=== PATIENT | female | born 1990 | race Caucasian/White ===

== ENCOUNTER 2016-10-29 12:09 | Emergency (ER) | payer OTHER ==
--- NOTE | 2016-10-29 15:45 | DIAGNOSTIC IMAGING REPORT ---
PROCEDURE: US ABDOMEN ULTRASOUND-LIMITED INDICATION: PAIN TECHNIQUE: Loaiza scale and color Doppler sonographic images of the abdomen were obtained without comparison. COMPARISON: None. FINDINGS: Limited study due to bowel gas and . The appendix was not visualized due to body habitus and . In the right lower quadrant the ovary avascular area were noted. The right kidney demonstrates minimal hydronephrosis. No stones are seen in the gallbladder. IMPRESSION: 1. Limited study. The appendix not visualized. No stones in the gallbladder.
--- NOTE | 2016-10-29 20:52 | ED CLINICAL REPORT ---
Clinical Report - Physicians/Mid Levels [facility] [address] [place] [address] 10/29/2016 12:11 Patient: AJ MACDONALD Time Seen: 13:11 Oct 29 2016. Arrived- By private vehicle. Historian- patient. HISTORY OF PRESENT ILLNESS Chief Complaint: ABDOMINAL PAIN. It is described as located in the right lower quadrant. This started just prior to arrival 9 AM and is still present. No nausea or loss of appetite. ( 19-week-old female, who recently fell 2 days previously at her back, was seen by her OB yesterday, developed abdominal pain this morning. She is currently being treated for vaginosis, as well as positive recent urinalysis, and is awaiting a complete closure, to start antibiotics. No vag bleeding. abd pain on right side, worse with movement, constant pain, no meds prior to arrival, not relieved with anything, improves in position.). REVIEW OF SYSTEMS No constipation, difficulty with urination, pain with urination, urinary frequency or headache. No sore throat, difficulty breathing or cough. All systems otherwise negative, except as recorded above. PAST HISTORY OB Gran. SOCIAL HISTORY Never smoker. No alcohol use. ADDITIONAL NOTES The nursing notes have been reviewed. PHYSICAL EXAM Vital Signs: 10/29/2016 12:55 BP: 118/74. HR: 78. RR: 18. O2 saturation: 100%. Temp: 98.4 F. Pain level now: 7/10. Appearance: Alert. No acute distress. Eyes: Eyes normal inspection. ENT: Ears normal. Nose normal. Neck: Normal inspection. Thyromegaly. Neck supple. CVS: Normal heart rate and rhythm. Heart sounds normal. Respiratory: No respiratory distress. Breath sounds normal. Chest nontender. No accessory muscle use or decreased air movement. Abdomen: Soft and nontender. Tenderness. Guarding present. Rebound tenderness. Gravid uterus palpable to midpoint between pubic symphysis and umbilicus. Back: Normal inspection. Skin: Skin warm. Normal skin color. LABS, X-RAYS, AND EKG Abdominal Sonogram: (IMPRESSION: 1. Limited study. The appendix not visualized. No stones in the gallbladder. Electronically Final signed by:Bennett Palumbo MD 10/29/2016 3:49:13 PM). Laboratory Tests: UA-Culture if indicated: (WILMER: 10/29/2016 13:10) ( MsgRcvd 10/29/2016 14:07) Final results Test Result Flag Units (Reference) URINE COLOR YELLOW URINE APPEARANCE CLEAR URINE GLUCOSE NEGATIVE (NEGATIVE) URINE BILIRUBIN NEGATIVE (NEGATIVE) URINE KETONE NEGATIVE (NEGATIVE) URINE SPECIFIC GRAVITY 1.015 (1.010-1.030) URINE PH 7.5 (5.0-8.0) URINE PROTEIN NEGATIVE (NEGATIVE) URINE UROBILINOGEN 0.2 EU/dL (0.2-1.0) URINE NITRITE NEGATIVE (NEGATIVE) URINE BLOOD NEGATIVE (NEGATIVE) URINE LEUK ESTERASE NEGATIVE (NEGATIVE) URINE RBC NONE SEEN rbc/hpf (0-1) URINE WBC RARE wbc/hpf (0-1) URINE EPITHELIAL CELLS 0-1 EPI/hpf (0-5) URINE BACTERIA NONE SEEN (NONE SEEN) URINE COMMENT CULT NOT INDICATED URINE CULTURES ARE SET-UP BASED ON THE FOLLOWING CRITERIA:POSITIVE NITRITEPOSITIVE LEUKOCYTE ESTERASEGREATER THAN 10 WHITE BLOOD CELLSMODERATE (2+) OR GREATER BACTERIA CBC w Diff: (WILMER: 10/29/2016 13:49) ( MsgRcvd 10/29/2016 14:14) Final results Test Result Flag Units (Reference) WHITE BLOOD COUNT 11.9 H K/uL (4.5-11.5) RED BLOOD COUNT 4.52 M/uL (4.00-5.20) HEMOGLOBIN 13.1 gm/dL (12.0-16.0) HEMATOCRIT 40.6 % (36.0-46.0) MEAN CELL VOLUME 90 fL (80-100) MEAN CORPUSCULAR HGB 29 pg (26-34) MEAN CORPUSCULAR HGB CONC 32 g/dL (31-37) RED CELL DISTRIBUTION WIDTH 12.6 % (11.6-14.8) PLATELET COUNT 301 K/uL (150-400) LYMPH % 21.8 L % (25-40) MONO % 1.5 L % (3-14) GRANULOCYTE % 76.7 (53-90) CMP: (WILMER: 10/29/2016 13:49) ( MsgRcvd 10/29/2016 14:30) Final results Test Result Flag Units (Reference) GLUCOSE 73 mg/dL (70-110) BUN 6 L mg/dL (7-18) CREATININE 0.4 L mg/dL (0.6-1.3) Estimated GFR >60 mL/min Estimated GFR- >60 mL/min Note: Persistent reduction over 3 months in eGFR<60 mL/min/1.73 m2 defines CKD. Patients with eGFR values>=60 mL/min/1.73 m2 may also have CKD if evidence ofpersistent proteinuria. Additional information may be foundat www.kidney.org. SODIUM 138 mmol/L (136-145) POTASSIUM 3.8 mmol/L (3.5-5.1) CHLORIDE 103 mmol/L (98-107) CARBON DIOXIDE 24 mmol/L (21-32) CALCIUM 8.5 mg/dL (8.5-10.1) TOTAL PROTEIN 6.6 g/dL (6.4-8.2) ALBUMIN 3.0 L g/dL (3.3-5.0) BILIRUBIN, TOTAL 0.3 mg/dL (0.0-1.0) ALKALINE PHOSPHATASE 67 U/L (46-116) AST (SGOT) 46 H U/L (15-37) ALT (SGPT) 62 U/L (12-78) . Note - Tests: (MRI abd: IMPRESSION: 1. Appendix not visualized but no definite evidence of a right lower quadrant inflammatory mass 2. Small amount of free fluid in the right lower quadrant and pelvis, etiology uncertain 3. Intrauterine 4. Results discussed with Jayden Barcenas Electronically Final signed by:Thomas Mejia MD 10/29/2016 9:00:30 PM). PROGRESS AND PROCEDURES Course of Care: FHT 157 [address] Collado, and he examined patient, concern for appendicitis. [address] Elizondo, who would like an MRI 1550 Discussed approval per radiology, per MRI, for the MRI with DR. Balderas 1600 Consent form signed by patient, and MRI has been ordered Pt with iv in right ac, family at bedside. MRI completed, no obvious signs of appendicitis, patient warranted in regard to new symptoms, need for follow-up. Understands plan. Stable. Patient can be discharged. 10/29/2016 20:50 BP: 110/60. HR: 68. RR: 18. O2 saturation: 100%. Pain level now: 0/10. 10/29/2016 15:36 BP: 103/67. HR: 68. RR: 16. O2 saturation: 99%. Pain level now: 4/10. Patient is stable. Physical exam findings are improved. Symptoms better. Patient/family counseled. Disposition: Discharged. CLINICAL IMPRESSION Acute abdominal pain. Second trimester ; positive test in emergency department. INSTRUCTIONS No strenuous activity. Rest. Drink plenty of fluids. No sexual contact. (pelvic rest drink plenty of fluid see DR. Menchaca on Wednesday). (Electronically signed by Grace Barcenas P.A.-C 10/29/2016 21:17)
--- NOTE | 2016-10-29 20:52 | ED ORDER SUMMARY ---
..... Patient: AJ MACDONALD OrderSheet [facility] VisitID: [id number] [place] [address] 26y, F Registration Date/Time: 10/29/2016 ORDER SHEET Weight: 77.1 kg (stated) Allergies: No Known Drug Allergy GENERAL ORDERS: CBC w Diff Urgent (13:10 10/29/2016 EKoroleva P.A.-C) (Ack 13:12 TBergley) (13:50 DDean R.N.) (13:50 TBergley) CMP Urgent (13:10 10/29/2016 EKoroleva P.A.-C) (Ack 13:12 TBergley) (13:50 DDean R.N.) (13:50 TBergley) UA-Culture if indicated Urgent (13:10 10/29/2016 EKoroleva P.A.-C) (Ack 13:12 TBergley) (13:50 DDean R.N.) US Abdomen Limited (No) (rlq) Urgent (14:19 10/29/2016 EKoroleva P.A.-C) (Ack 14:25 TBergley) (15:38 DDean R.N.) MRI Pelvis wo Cont (Not Applicable) Urgent (15:47 10/29/2016 EKoroleva P.A.-C) (Ack 15:57 TBergley) (20:19 TBergley) MEDICATION ORDERS: IV FLUIDS: IV NS : initial bolus 1000 mL (1000 mL/hr), then 10 mL/hr for X1 (NOW); Khadar (15:36 10/29/2016 EKoroleva P.A.-C) (Ack 15:38 DDean R.N.) (16:17 DDean R.N.) ORDER SHEET NOTES: [Electronically signed by Danette Lucio R.N. (21:14 10/29/2016)] [Electronically signed by Grace BarcenasA.-C (21:17 10/29/2016)] [Electronically locked/signed by Danette Lucio R.N. (21:14 10/29/2016)Waqar
--- NOTE | 2016-10-29 20:52 | ED NURSING NOTES ---
Clinical Report - Nurses [facility] [address] [place] [address] 10/29/2016 12:11 Patient: AJ MACDONALD TRIAGE Triage time 1255. Acuity: LEVEL 3. Chief Complaint: ABDOMINAL CRAMPS and (c/o right sided cramping pain after sneezing this morning. Pt also states she fell down 5 steps yesterday due to ice , landing on right side). ( FHT- 157). --13:11 Danette Lucio R.N. 12:55 10/29/16. BP: 118/74. HR: 78. RR: 18. O2 saturation: 100%. Temp: 98.4 F. Pain level now: 04/26. --13:11 Danette Lucio R.N. ( last ate 2200, last fluids 2200 except for small sips of water in lobby). --16:37 Danette Lucio R.N. Weight: 77.1 kg stated. Height/Length: 68 inches Per Patient. BMI: 25.9. --13:09 Danette Lucio R.N. Medications Fluconazole Oral 150 mg, daily, last dose yesterday . MetroNIDAZOLE Oral 500 mg, 2x a day, last dose finished yesterday . --13:06 Danette Lucio R.N. Vitamins Oral 1 pill, daily. --13:07 Danette Lucio R.N. Allergies No Known Drug Allergy. --13:04 Danette Lucio R.N. History Arrived by private vehicle, and accompanied by (mother in law). Primary physician (OBnesha). Onset. (0900). ( was seen at Dr Álvarez office yesterday, told she has a UTI). No vomiting. PAST MEDICAL HX: Immunizations: up-to-date. She has had care. OB history: G 1; P 0; Ab 0. ( heart murmur). SURGERY HX: Tonsillectomy. SOCIAL HX: Never smoker. No alcohol use. --13:11 Danette Lucio R.N. Interventions ID band on patient. To treatment room. --13:11 Danette Lucio R.N. PHYSICAL ASSESSMENT 12:55. To room via wheelchair. Patient gowned. GENERAL / NEURO / PSYCH: Alert. Oriented X 4. Appears in pain. RESPIRATORY: Respirations not labored. CVS: Capillary refill less than 2 seconds. GI / : No vaginal bleeding or discharge. ( increased pain with walking or standing up right). SKIN: Skin is warm and dry. --13:12 Danette Lucio R.N. NURSING PROGRESS NOTES 12:55. Patient gowned. Head of bed elevated. Reassurance given. Patient identifiers checked. Call light placed in reach. Side rails up. Bed placed in lowest position. Patient ready for evaluation- chart flagged. --13:11 Danette Lucio R.N. 13:27 10/29/16. Patient ID band checked for patient name and birthdate: patient confirmed. Clean catch urine collected with return of yellow-colored clear urine; sample sent to lab for urinalysis and culture. Specimen labeled in the presence of the patient. ( Pt walked slowly and bent over to bathroom to void. UA sent to lab). --13:27 Danette Lucio R.N. 13:50 10/29/16. Patient ID band checked for patient name and birthdate: patient confirmed. Blood samples drawn by lab per protocol ; labeled in presence of the patient and sent to lab: rainbow set. --13:50 Danette Lucio R.N. 14:27 10/29/16. ( family talking with pt at bedside. in no acute distress. waiting for US). --14:27 Danette Lucio R.N. 14:39 10/29/16. ( US at bedside to do exam). --14:39 Danette Lucio R.N. 15:36 10/29/16. BP: 103/67. HR: 68. RR: 16. O2 saturation: 99% on room air. Pain level now: 4/10. Additional comments: resting quietly, at BS. --15:37 Danette Lucio R.N. 15:41 10/29/16. ( ERMD on phone with Dr. Elizondo, Dr. Elizondo will come done to examine). --15:41 Danette Lucio R.N. 15:50 10/29/2016 Site #1 started via IV in the right antecubital space with an 20g angiocath, with aseptic technique and good blood return; one attempt. Saline lock flushed with 10 mL saline. --15:56 Isabel Raymond R.N. 16:00 10/29/2016 Started bag #1 1000 mL IV Fluids IV NS (Saline); at 1000 mL/hr over 1 hour(s) via site #1 via IV pump. --16:17 Danette Lucio R.N. 16:05. ( MRI form given to pt and family to fill out). --16:24 Danette Lucio R.N. 17:30 10/29/2016 IV Fluids IV NS Bag Change: bag #1 infused. Total amount infused: 1000. STARTED bag #2 (1000 mL) at 50 mL/hr via IV pump. IV patency established. IV site checked: no pain, redness, or swelling. IV flushed thoroughly. --17:38 Danette Lucio R.N. 17:00. ( Pt filled out MRI form,resting quietly with family at bedside. states pain is better). --17:39 Danette Lucio R.N. 17:30 pt ambulated to bathroom, kurtis well, walking upright, states she feels much better than earlier. --17:44 Danette Lucio R.N. 17:41 10/29/16. BP: 105/54. HR: 65. RR: 16. O2 saturation: 99% on room air. Temp: deferred. Pain level now: 0/10. --17:44 Danette Lucio R.N. 18:15. ( Pt sitting on edge of bed, waiting for MRI family at bedside.). --19:18 Danette Lucio R.N. 19:00 HORSE BUYER attempted to call MRI x2 he is not answering. not sure if he is aware of pt waiting. --19:18 Danette Lucio R.N. 19:05 staff walked over to [facility] building, tech doing paperwork, heading over to main building with RN, is aware of ED pt. asking if pt will be w/c or stretcher. --19:19 Danette Lucio R.N. 19:15 pt taken to MRI via w/c IV to saline lock per creative technologist request. --19:43 Danette Lucio R.N. 20:25. ( returned from MRI, in no distress. states pain now 0/10, states she is hungry.). --21:12 Danette Lucio R.N. 20:40 10/29/2016 Site #1 removed upon discharge. Bandaid applied. --21:12 Danette Lucio R.N. DISPOSITION / DISCHARGE 20:50. Condition at departure: improved and stable. No learning barriers present. Discharge instructions provided and reviewed with the patient and family. Reviewed medication(s) (cont home meds). Patient and family verbalized understanding. Written instructions provided in Syrian. The patient was discharged home and accompanied by family. She left the Emergency Department ambulatory and via private vehicle. Family member driving. --21:10 Danette Lucio R.N. 20:50 10/29/16. BP: 110/60. HR: 68. RR: 18. O2 saturation: 100%. Temp: deferred. Pain level now: 0/10. --21:10 Danette Lucio R.N. Locked/Released at 10/29/2016 21:14 by Danette Lucio R.N.
--- NOTE | 2016-10-29 20:52 | ED ORDER SUMMARY ---
..... Patient: AJ MACDONALD OrderSheet [facility] VisitID: [id number] [place] [address] 26y, F Registration Date/Time: 10/29/2016 ORDER SHEET Weight: 77.1 kg (stated) Allergies: No Known Drug Allergy GENERAL ORDERS: CBC w Diff Urgent (13:10 10/29/2016 EKoroleva P.A.-C) (Ack 13:12 TBergley) (13:50 DDean R.N.) (13:50 TBergley) CMP Urgent (13:10 10/29/2016 EKoroleva P.A.-C) (Ack 13:12 TBergley) (13:50 DDean R.N.) (13:50 TBergley) UA-Culture if indicated Urgent (13:10 10/29/2016 EKoroleva P.A.-C) (Ack 13:12 TBergley) (13:50 DDean R.N.) US Abdomen Limited (No) (rlq) Urgent (14:19 10/29/2016 EKoroleva P.A.-C) (Ack 14:25 TBergley) (15:38 DDean R.N.) MRI Pelvis wo Cont (Not Applicable) Urgent (15:47 10/29/2016 EKoroleva P.A.-C) (Ack 15:57 TBergley) (20:19 TBergley) MEDICATION ORDERS: IV FLUIDS: IV NS : initial bolus 1000 mL (1000 mL/hr), then 10 mL/hr for X1 (NOW); Khadar (15:36 10/29/2016 EKoroleva P.A.-C) (Ack 15:38 DDean R.N.) (16:17 DDean R.N.) ORDER SHEET NOTES: [Electronically signed by Danette Lucio R.N. (21:14 10/29/2016)] [Electronically signed by Grace BarcenasA.-C (21:17 10/29/2016)] [Electronically locked/signed by Danette Lucio R.N. (21:14 10/29/2016)Waqar
--- NOTE | 2016-10-29 20:52 | ED NURSING NOTES ---
Clinical Report - Nurses [facility] [address] [place] [address] 10/29/2016 12:11 Patient: AJ MACDONALD TRIAGE Triage time 1255. Acuity: LEVEL 3. Chief Complaint: ABDOMINAL CRAMPS and (c/o right sided cramping pain after sneezing this morning. Pt also states she fell down 5 steps yesterday due to ice , landing on right side). ( FHT- 157). --13:11 Danette Lucio R.N. 12:55 10/29/16. BP: 118/74. HR: 78. RR: 18. O2 saturation: 100%. Temp: 98.4 F. Pain level now: 04/26. --13:11 Danette Lucio R.N. ( last ate 2200, last fluids 2200 except for small sips of water in lobby). --16:37 Danette Lucio R.N. Weight: 77.1 kg stated. Height/Length: 68 inches Per Patient. BMI: 25.9. --13:09 Danette Lucio R.N. Medications Fluconazole Oral 150 mg, daily, last dose yesterday . MetroNIDAZOLE Oral 500 mg, 2x a day, last dose finished yesterday . --13:06 Danette Lucio R.N. Vitamins Oral 1 pill, daily. --13:07 Danette Lucio R.N. Allergies No Known Drug Allergy. --13:04 Danette Lucio R.N. History Arrived by private vehicle, and accompanied by (mother in law). Primary physician (OBnesha). Onset. (0900). ( was seen at Dr Álvarez office yesterday, told she has a UTI). No vomiting. PAST MEDICAL HX: Immunizations: up-to-date. She has had care. OB history: G 1; P 0; Ab 0. ( heart murmur). SURGERY HX: Tonsillectomy. SOCIAL HX: Never smoker. No alcohol use. --13:11 Danette Lucio R.N. Interventions ID band on patient. To treatment room. --13:11 Danette Lucio R.N. PHYSICAL ASSESSMENT 12:55. To room via wheelchair. Patient gowned. GENERAL / NEURO / PSYCH: Alert. Oriented X 4. Appears in pain. RESPIRATORY: Respirations not labored. CVS: Capillary refill less than 2 seconds. GI / : No vaginal bleeding or discharge. ( increased pain with walking or standing up right). SKIN: Skin is warm and dry. --13:12 Danette Lucio R.N. NURSING PROGRESS NOTES 12:55. Patient gowned. Head of bed elevated. Reassurance given. Patient identifiers checked. Call light placed in reach. Side rails up. Bed placed in lowest position. Patient ready for evaluation- chart flagged. --13:11 Danette Lucio R.N. 13:27 10/29/16. Patient ID band checked for patient name and birthdate: patient confirmed. Clean catch urine collected with return of yellow-colored clear urine; sample sent to lab for urinalysis and culture. Specimen labeled in the presence of the patient. ( Pt walked slowly and bent over to bathroom to void. UA sent to lab). --13:27 Danette Lucio R.N. 13:50 10/29/16. Patient ID band checked for patient name and birthdate: patient confirmed. Blood samples drawn by lab per protocol ; labeled in presence of the patient and sent to lab: rainbow set. --13:50 Danette Lucio R.N. 14:27 10/29/16. ( family talking with pt at bedside. in no acute distress. waiting for US). --14:27 Danette Lucio R.N. 14:39 10/29/16. ( US at bedside to do exam). --14:39 Danette Lucio R.N. 15:36 10/29/16. BP: 103/67. HR: 68. RR: 16. O2 saturation: 99% on room air. Pain level now: 4/10. Additional comments: resting quietly, at BS. --15:37 Danette Lucio R.N. 15:41 10/29/16. ( ERMD on phone with Dr. Elizondo, Dr. Elizondo will come done to examine). --15:41 Danette Lucio R.N. 15:50 10/29/2016 Site #1 started via IV in the right antecubital space with an 20g angiocath, with aseptic technique and good blood return; one attempt. Saline lock flushed with 10 mL saline. --15:56 Isabel Raymond R.N. 16:00 10/29/2016 Started bag #1 1000 mL IV Fluids IV NS (Saline); at 1000 mL/hr over 1 hour(s) via site #1 via IV pump. --16:17 Danette Lucio R.N. 16:05. ( MRI form given to pt and family to fill out). --16:24 Danette Lucio R.N. 17:30 10/29/2016 IV Fluids IV NS Bag Change: bag #1 infused. Total amount infused: 1000. STARTED bag #2 (1000 mL) at 50 mL/hr via IV pump. IV patency established. IV site checked: no pain, redness, or swelling. IV flushed thoroughly. --17:38 Danette Lucio R.N. 17:00. ( Pt filled out MRI form,resting quietly with family at bedside. states pain is better). --17:39 Danette Lucio R.N. 17:30 pt ambulated to bathroom, kurtis well, walking upright, states she feels much better than earlier. --17:44 Danette Lucio R.N. 17:41 10/29/16. BP: 105/54. HR: 65. RR: 16. O2 saturation: 99% on room air. Temp: deferred. Pain level now: 0/10. --17:44 Danette Lucio R.N. 18:15. ( Pt sitting on edge of bed, waiting for MRI family at bedside.). --19:18 Danette Lucio R.N. 19:00 SPORTS PHYSIOTHERAPIST attempted to call MRI x2 he is not answering. not sure if he is aware of pt waiting. --19:18 Danette Lucio R.N. 19:05 staff walked over to [facility] building, tech doing paperwork, heading over to main building with RN, is aware of ED pt. asking if pt will be w/c or stretcher. --19:19 Danette Lucio R.N. 19:15 pt taken to MRI via w/c IV to saline lock per network operations technician request. --19:43 Danette Lucio R.N. 20:25. ( returned from MRI, in no distress. states pain now 0/10, states she is hungry.). --21:12 Danette Lucio R.N. 20:40 10/29/2016 Site #1 removed upon discharge. Bandaid applied. --21:12 Danette Lucio R.N. DISPOSITION / DISCHARGE 20:50. Condition at departure: improved and stable. No learning barriers present. Discharge instructions provided and reviewed with the patient and family. Reviewed medication(s) (cont home meds). Patient and family verbalized understanding. Written instructions provided in Pakistani. The patient was discharged home and accompanied by family. She left the Emergency Department ambulatory and via private vehicle. Family member driving. --21:10 Danette Lucio R.N. 20:50 10/29/16. BP: 110/60. HR: 68. RR: 18. O2 saturation: 100%. Temp: deferred. Pain level now: 0/10. --21:10 Danette Lucio R.N. Locked/Released at 10/29/2016 21:14 by Danette Lucio R.N.
--- NOTE | 2016-10-29 21:00 | DIAGNOSTIC IMAGING REPORT ---
PROCEDURE: MR PELVIS W/O CONTRAST INDICATION: ABDOMINAL PAIN TECHNIQUE: Axial and coronal T1 and T2 sequences. COMPARISON: Abdominal ultrasound 10/29/2016 FINDINGS: Appendix not visualized but no evidence of an inflammatory mass There is a small amount of right lower quadrant and spelling free fluid. Intrauterine present . Normal gallbladder. Mild fullness of the renal collecting systems bilaterally secondary to . Visualized portions of the liver and spleen are normal. IMPRESSION: 1. Appendix not visualized but no definite evidence of a right lower quadrant inflammatory mass 2. Small amount of free fluid in the right lower quadrant and pelvis, etiology uncertain 3. Intrauterine 4. Results discussed with Jayden Barcenas
--- NOTE | 2016-10-29 21:17 | ED MAR SUMMARY ---
..... Medication Administration Record [facility] [address] [place] [address] Patient: AJ MACDONALD Visit ID: [id number] 26y, F Weight: 77.1 kg Height/Length: 68 in BMI: 25.9 ALLERGIES: No Known Drug Allergy Start 16:00 10/29/2016 NaveedDanette R.N. Medication Administered: IV NS (SALINE), Dose: IV Fluids over 1 hour(s), Rate: 1000 mL/hr, Dispensed: 1000 mL bag, Site: #1 right AC. Medication Ordered: IV NS : initial bolus 1000 mL (1000 mL/hr), then 10 mL/hr for X1 (NOW); Khadar.
--- NOTE | 2016-10-29 21:17 | ED DISCHARGE INSTRUCTIONS ---
Patient: AJ MACDONALD General Instructions [facility] VisitID: [id number] [place] [address] 26y, F Registration Date/Time: 10/29/2016 Acute abdominal pain. Second trimester ; positive test in emergency department. INSTRUCTIONS No strenuous activity. Rest. Drink plenty of fluids. No sexual contact. (pelvic rest drink plenty of fluid see DR. Menchaca on Wednesday). ADDITIONAL INFORMATION Abdominal Pain, Unknown Cause (Female) The exact cause of your abdominal (stomach) pain is not certain. This does not mean that this is something to worry about, or the right tests were not done. Everyone likes to know the exact cause of the problem, but sometimes with abdominal pain, there is no clear-cut cause, and this could be a good thing. The good news is that your symptoms can be treated, and you will feel better. Your condition does not seem serious now; however, sometimes the signs of a serious problem may take more time to appear. For this reason,it is important for you to watch for any new symptoms, problems,or worsening of your condition. Over the next few days, the abdominal pain may come and go, or be continuous. Other common symptoms can include nausea and vomiting. Sometimes it can be difficult to tell if you feel nauseous, you may just feel bad and not associate that feeling with nausea. Constipation, diarrhea, and a fever may go along with the pain. The pain may continue even if treated correctly over the following days. Depending on how things go, sometimes the cause can become clear and may require further or different treatment. Additional evaluations, medications, or tests may be needed. Home care Your health care provider may prescribe medications for pain, symptoms, or an infection. Follow the health care provider's instructions for taking these medications. General care Rest until your next exam. No strenuous activities. Try to find positions that ease discomfort. A small pillow placed on the abdomen may help relieve pain. Something warm on your abdomen (such as a heating pad) may help, but be careful not to burn yourself. Diet Do not force yourself to eat, especially if having cramps, vomiting, or diarrhea. Water is important so you do not get dehydrated. Soup may also be good. Sports drinks may also help, especially if they are not too acidic. Make sure you don't drink sugary drinks as this can make things worse. Take liquids in small amounts. Do not guzzle them. Caffeine sometimes makes the pain and cramping worse. Avoid dairy products if you have vomiting or diarrhea. Don't eat large amounts at a time. Wait a few minutes between bites. Eat a diet low in fiber (called a low-residue diet). Foods allowed include refined breads, white rice, fruit and vegetable juices without pulp, tender meats. These foods will pass more easily through the intestine. Avoid whole-grain foods, whole fruits and vegetables, meats, seeds and nuts, fried or fatty foods, dairy, alcohol and spicy foods until your symptoms go away. Follow-up care Follow up with your health care provider as instructed, or if your pain does not begin to improve in the next 24 hours. When to seek medical care Seek prompt medical care if any of the following occur: Pain gets worse or moves to the right lower abdomen New or worsening vomiting or diarrhea Swelling of the abdomen Unable to pass stool for more than three days Fever of 100.4F (38C) or higher, or as directed by your healthcare provider. Blood in vomit or bowel movements (dark red or black color) Jaundice (yellow color of eyes and skin) Weakness, dizziness Chest, arm, back, neck or jaw pain Unexpected vaginal bleeding or missed period Call 911 Call emergency services if any of the following occur: Trouble breathing Confusion Fainting or loss of consciousness Rapid heart rate Seizure You have been given the following additional information: Abdominal Pain, Unknown Cause, (Female) No strenuous activity. Rest. (Electronically signed by Grace Barcenas P.A.-C 10/29/2016 21:17)
--- NOTE | 2016-10-29 21:17 | ED MED RECONCILIATION SUMMARY ---
Patient: AJ MACDONALD Medication Reconciliation Report [facility] VisitID: [id number] [address] [place] [address] 26y, F Registration Date/Time: 10/29/2016 Weight: 77.1 kg Height/Length: 68 in. BMI: 25.9 ALLERGIES: No Known Drug Allergy The patient's Home Medications are listed below: THE FOLLOWING MEDICATIONS NEED TO BE RECONCILED: Fluconazole Oral 150 mg, daily, last dose: yesterday MetroNIDAZOLE Oral 500 mg, 2x a day, last dose: finished yesterday Vitamins Oral 1 pill, daily The source(s) of the original Home Medication information: Not obtained. The following Medications were given to the patient in the Emergency Department: IV NS IV Fluids bolus 0, then 1000 mL/hr, administered: 10/29/2016 4:00:00 PM The following Medications were prescribed to the patient: None.
--- NOTE | 2016-10-29 21:17 | ED MAR SUMMARY ---
..... Medication Administration Record [facility] [address] [place] [address] Patient: AJ MACDONALD Visit ID: [id number] 26y, F Weight: 77.1 kg Height/Length: 68 in BMI: 25.9 ALLERGIES: No Known Drug Allergy Start 16:00 10/29/2016 NaveedDanette R.N. Medication Administered: IV NS (SALINE), Dose: IV Fluids over 1 hour(s), Rate: 1000 mL/hr, Dispensed: 1000 mL bag, Site: #1 right AC. Medication Ordered: IV NS : initial bolus 1000 mL (1000 mL/hr), then 10 mL/hr for X1 (NOW); Khadar.
--- NOTE | 2016-10-29 21:17 | ED MED RECONCILIATION SUMMARY ---
Patient: AJ MACDONALD Medication Reconciliation Report [facility] VisitID: [id number] [address] [place] [address] 26y, F Registration Date/Time: 10/29/2016 Weight: 77.1 kg Height/Length: 68 in. BMI: 25.9 ALLERGIES: No Known Drug Allergy The patient's Home Medications are listed below: THE FOLLOWING MEDICATIONS NEED TO BE RECONCILED: Fluconazole Oral 150 mg, daily, last dose: yesterday MetroNIDAZOLE Oral 500 mg, 2x a day, last dose: finished yesterday Vitamins Oral 1 pill, daily The source(s) of the original Home Medication information: Not obtained. The following Medications were given to the patient in the Emergency Department: IV NS IV Fluids bolus 0, then 1000 mL/hr, administered: 10/29/2016 4:00:00 PM The following Medications were prescribed to the patient: None.
== END 2016-10-29 20:52 | disposition home or self-care (01) ==
LOC: ED SRH 12:09
DX: O26.92 Pregnancy related conditions, unspecified, second trimester (principal); R10.31 Right lower quadrant pain; Z3A.19 19 weeks gestation of pregnancy
CPT/HCPCS: 90004; 90100; 95059